=== PATIENT | male | born 1950 | race Asian ===

== ENCOUNTER → 2020-07-21 | Day surgery (SDC) | payer MEDICARE ==
[~2020-07-21] MED LIST: ATORVASTATIN CA10 MG PO; GLIMEPIRIDE2 MG PO; LISINOPRIL2.5 MG PO; METFORMIN HCL500 MG PO; OR PHACO EYE KIT ONE; PREOP PHACO EYE KIT ONE
[2020-07-21 13:36] VITALS: BP 113/77
== END | disposition home or self-care (01) ==
LOC: OR 10:07
PROVIDERS: ATTEND Ophthalmology
DX: H25.12 Age-related nuclear cataract, left eye (principal); E11.9 Type 2 diabetes mellitus without complications; E78.5 Hyperlipidemia, unspecified; Z01.812 Encounter for preprocedural laboratory examination; Z20.822 Contact with and (suspected) exposure to COVID-19; Z79.84 Long term (current) use of oral hypoglycemic drugs
CPT/HCPCS: 36415; 66984; 82948; U0002; V2632